=== PATIENT | male | born 1985 | race Caucasian/White ===

== ENCOUNTER 2017-11-25 07:25 | Emergency (ER) | payer OTHER ==
[~2017-11-25] VITALS: Ht 165.1 cm; Wt 86.0 kg
[2017-11-25 07:58] LABS: HEMATOCRIT 45.2 % (38.0-50.0); HEMOGLOBIN 15.7 G/DL (12.5-16.6); MCH 29.9 PG (29.0-34.0); MCHC 34.7 G/DL (30.0-36.0); MCV 86.1 FL (86-99); PLATELET COUNT 264 K/uL (156-360); RBC DIS.WIDTH-CV 12.7 % (11.8-14.6); RBC DIS.WIDTH-SD 39.6 % (39-53); RED BLOOD COUNT 5.25 M/uL (4.00-5.50); WHITE BLOOD COUNT 7.9 K/uL (4.1-10.2)
[2017-11-25 08:18] LABS: CHLORIDE 103 mEq/L (99-109); POTASSIUM 4.4 mEq/L (3.7-5.4); SODIUM 138 mEq/L (136-147)
[2017-11-25 08:20] LABS: TOTAL PROTEIN 8.1 g/dL (6.4-8.3)
[2017-11-25 08:22] LABS: TOTAL BILIRUBIN 1.3 mg/dL (0.0-1.0)
[2017-11-25 08:24] LABS: ALKALINE PHOSPHATASE 53 IU/L (3-129); CREATININE 0.9 mg/dL (0.6-1.3); GFR ESTIMATE (CALCULATED) > 59 mL/min/ (58.99-99999)
[2017-11-25 08:25] LABS: UREA NITROGEN (BUN) 12 mg/dL (9-23)
[2017-11-25 08:26] LABS: AST (GOT) 50 IU/L (2-34)
[2017-11-25 08:27] LABS: ALT (GPT) 109 IU/L (3-49)
[2017-11-25 08:46] LABS: GLUCOSE 109 mg/dL (70-99)
[2017-11-25 09:42] LABS: LIPASE 11 U/L (1.0-51.0)
[2017-11-25 10:43] LABS: APPEARANCE CLEAR ((CLEAR)); BILIRUBIN NEGATIVE; BLOOD NEGATIVE; COLOR YELLOW ((YELLOW)); GLUCOSE (STRIP) NEGATIVE; KETONES NEGATIVE; LEUKOCYTES NEGATIVE; NITRITE NEGATIVE; PROTEIN (STRIP) 30; SPECIFIC GRAVITY 1.029 (1.000-1.030); UCUL ADDED? NO; UROBILINOGEN 0.2 MG/DL (0.2-1.0)
[2017-11-25] MEDS ORDERED: FLEXERIL10 MG PO (11:20)
[2017-11-25] MEDS ORDERED: NAPROSYN500 MG PO (11:20)
[2017-11-25 11:34] VITALS: BP 148/98
[2017-11-26] MEDS ORDERED: VYVANSE30 MG PO (19:29)
[2017-11-26] MEDS ORDERED: VALIUM5 MG PO (22:43)
== END 2017-11-25 11:36 | disposition home or self-care (01) ==
LOC: EME 07:25
PROVIDERS: Nurse Practitioner Family
DX: R10.9 Unspecified abdominal pain (principal); R79.89 Other specified abnormal findings of blood chemistry; R03.0 Elevated blood-pressure reading, without diagnosis of hypertension; R11.0 Nausea; F17.200 Nicotine dependence, unspecified, uncomplicated; Z71.6 Tobacco abuse counseling; Z95.9 Presence of cardiac and vascular implant and graft, unspecified; Z84.1 Family history of disorders of kidney and ureter; Z90.89 Acquired absence of other organs
CPT/HCPCS: 74176; 80053; 81003; 83690; 85027; 99281; 99284; J1885

== ENCOUNTER 2017-11-26 19:10 | Emergency (ER) | payer BC ==
[~2017-11-26] VITALS: Ht 165.1 cm; Wt 85.9 kg
[~2017-11-26 19:10] MED LIST: FLEXERIL10 MG PO; NAPROSYN500 MG PO
[2017-11-26] MEDS ORDERED: VYVANSE30 MG PO (19:29)
[2017-11-26 20:12] LABS: HEMATOCRIT 43.6 % (38.0-50.0); HEMOGLOBIN 15.2 G/DL (12.5-16.6); MCH 30.3 PG (29.0-34.0); MCHC 34.9 G/DL (30.0-36.0); PLATELET COUNT 238 K/uL (156-360); RBC DIS.WIDTH-CV 12.6 % (11.8-14.6); RBC DIS.WIDTH-SD 39.9 % (39-53); RED BLOOD COUNT 5.01 M/uL (4.00-5.50); WHITE BLOOD COUNT 7.8 K/uL (4.1-10.2)
[2017-11-26 20:25] LABS: ALBUMIN 4.5 g/dL (3.2-4.8)
[2017-11-26 20:26] LABS: CHLORIDE 105 mEq/L (99-109); SODIUM 138 mEq/L (136-147)
[2017-11-26 20:28] LABS: GLUCOSE 86 mg/dL (70-99); TOTAL PROTEIN 7.4 g/dL (6.4-8.3)
[2017-11-26 20:31] LABS: ALKALINE PHOSPHATASE 49 IU/L (3-129)
[2017-11-26 20:32] LABS: CREATININE 0.8 mg/dL (0.6-1.3); GFR ESTIMATE (CALCULATED) > 59 mL/min/ (58.99-99999); TOTAL BILIRUBIN 0.7 mg/dL (0.0-1.0)
[2017-11-26 20:33] LABS: UREA NITROGEN (BUN) 10 mg/dL (9-23)
[2017-11-26 20:34] LABS: ALT (GPT) 68 IU/L (3-49)
[2017-11-26 20:35] LABS: LIPASE 25 U/L (1.0-51.0)
[2017-11-26 20:37] LABS: AST (GOT) 24 IU/L (2-34)
[2017-11-26 21:54] LABS: BILIRUBIN NEGATIVE; BLOOD NEGATIVE; COLOR YELLOW ((YELLOW)); GLUCOSE (STRIP) NEGATIVE; KETONES NEGATIVE; LEUKOCYTES NEGATIVE; NITRITE NEGATIVE; PROTEIN (STRIP) NEGATIVE; SPECIFIC GRAVITY 1.021 (1.000-1.030); UROBILINOGEN 0.2 MG/DL (0.2-1.0)
[2017-11-26 21:57] LABS: APPEARANCE CLEAR ((CLEAR)); UCUL ADDED? NO
[2017-11-26] MEDS ORDERED: VALIUM5 MG PO (22:43)
[2017-11-26 22:54] VITALS: BP 129/94
== END 2017-11-26 23:02 | disposition home or self-care (01) ==
LOC: EME 19:10
PROVIDERS: Nurse Practitioner Acute Care; Physician Assistant
DX: S39.012A Strain of muscle, fascia and tendon of lower back, initial encounter (principal); R03.0 Elevated blood-pressure reading, without diagnosis of hypertension; F17.200 Nicotine dependence, unspecified, uncomplicated
CPT/HCPCS: 76770; 80053; 81003; 83690; 85027; 99281; 99285; J1885; J2405; J3010; J7030